=== PATIENT | female | born 1950 | race Caucasian/White ===

== ENCOUNTER 2021-12-11 12:11 | Inpatient (IN) | payer OTHER ==
[~2021-12-11] VITALS: Ht 165.1 cm; Wt 62.7 kg
[~2021-12-11 12:11] MED LIST: ASPIRIN81 M2 PO; CATAPRES-TTS 10.1 MG PO; CLONIDINE0.1 PO; EFFIENT10 MG PO; FLEXERIL PO; HYDROCODON-ACE1 EAC7 PO; K-DUR 20 MEQ T20 MEQ PO; LASIX 40 MG TAB40 M1 PO; SYNTHROID100 MCG PO; TOPROL XL50 MG PO; TRANSDERM-SCOP1 EACH TD; VYTORIN 10-401 EACH PO; XANAX 0.5 MG0.5 M1 PO
[2021-12-11 13:42] VITALS: BP 136/74
[2021-12-11] MEDS ORDERED: MECLIZINE HCL25 M1 PO (14:37)
[2021-12-11] MEDS ORDERED: ROSUVASTATIN CA20 MG PO (14:38)
[2021-12-11] MEDS ORDERED: NITROSTAT0.4 M1 SUBLING (14:38)
[2021-12-11] MEDS ORDERED: ULTRAM50 MG PO (14:39)
[2021-12-11] MEDS ORDERED: DESYREL150 MG PO (14:40)
[2021-12-11 16:18] LABS: BE(vivo) 1.7 mmol/L (-2 to +3); HCO3 27.4 mmol/L (22.0-26.0); PCO2 46.9 mmHg (35.0-45.0); pH 7.384 (7.360-7.450); sO2 92.3 % (92.0-98.0)
--- NOTE | 2021-12-11 18:20 | NUR ---
PATIENT ADMIT TO UNIT AT 1420 ON NRB. PATIENT SWITCHED TO OPTIFLOW 50L/85% BY THEN. A/O X2. NOTED PATIENT KEEP DESAT. DR TAYLOR ORDERED BIPAP. PATIENT IS ON 80% BIPAP NOW WITH SAT 93%..POOR APPATIE. FAMILY UPDATED. WILL LEEP MONITOR.
[2021-12-11 19:48] VITALS: BP 115/63
[2021-12-12 00:31] VITALS: BP 112/68
[2021-12-12 02:35] VITALS: BP 126/72
--- NOTE | 2021-12-12 03:40 | NUR ---
PT MAKING POOR PROGRESS TOWARD GOAL. ON BIPAP 10/11 R=10 [id number]%. NOTED O2 SATS 92-95% UPON INITIAL ASSESSMENT. THIS AM O2 SATS SLIGHTLY HIGHER WITH 95-98%. LUNGS CTA UPPER LOBES AND CRACKLES IN LOWER LOBES. NO COUGH OBSERVED. PT TOLERATING BIPAP WELL. NO TACHYPNEA OBSERVED. NO COMPLAINTS OF PAIN.
[2021-12-12 05:34] LABS: HEMATOCRIT 38.5 % (37.0-47.0); HEMOGLOBIN 12.9 gm/dL (12.0-15.0); MCH 32.2 pg (26.0-34.0); MCHC 33.5 g/dL (28.0-37.0); MCV 96.2 fL (80.0-100.0); RBC 4.01 mil/uL (4.20-5.00); RDW 16.9 % (10.5-14.5)
[2021-12-12 06:01] LABS: CALCIUM 8.4 mg/dL (8.5-10.1); MAGNESIUM 1.7 mg/dL (1.8-2.4)
[2021-12-12 06:02] LABS: CREATININE 0.6 mg/dL (0.6-1.0); POTASSIUM 4.1 mmol/L (3.5-5.1)
[2021-12-12 07:34] VITALS: BP 123/72
[2021-12-12 11:23] VITALS: BP 125/71
[2021-12-12 15:34] VITALS: BP 129/71
--- NOTE | 2021-12-12 16:08 | NUR ---
RT TL IJ RELEASED FOR USE
[2021-12-12 18:56] LABS: D-DIMER 0.52 ug/mLFEU (0.19-0.50)
--- NOTE | 2021-12-12 19:55 | NUR ---
ASSUMED PATIENT CARE AT 0700. A/O X2. CONFUSED. PATIENT IS ON 100% BIPAP SAT 94%. FACETIME WITH PATIENT AND TWO DAUGHTERS. PATIENT HAS FOUR RINGS THAT CUT OFF SENT TO SECURITY. NOTED RIGHT IJ CENTRAL LINE BLEEDING. DRESSING CHANGED. WILL KEEP MONITOR.
[2021-12-12 20:27] VITALS: BP 123/75
[2021-12-13] VITALS (23 sets, daily range): BP systolic 88–139; BP diastolic 53–104
[2021-12-13 04:06] LABS: HIV ANTIBODY Non Reactive (Non Reactive)
[2021-12-13 04:54] LABS: ABSOLUTE NEUTROPHILS 8.5 thou/uL (1.4-8.2); BASOPHILS 0.2 % (0.0-2.0); HEMOGLOBIN 11.8 gm/dL (12.0-15.0); LYMPHOCYTES 7.9 % (24.0-44.0); MCHC 33.8 g/dL (28.0-37.0); MCV 94.7 fL (80.0-100.0); MONOCYTES 10.4 % (1.0-8.0); PLATELET COUNT 249 thou/uL (150-400); POLYS 81.5 % (36.0-66.0); RBC 3.69 mil/uL (4.20-5.00); RDW 16.6 % (10.5-14.5); WBC 10.5 thou/uL (4.0-11.0)
[2021-12-13 05:06] LABS: ALBUMIN 2.8 g/dL (3.4-5.0); ANION GAP 11 mmol/L (7-16); BUN 23 mg/dL (7-18); CALCIUM 8.5 mg/dL (8.5-10.1); CHLORIDE 99 mmol/L (98-107); CO2 28 mmol/L (21-32); DIRECT BILIRUBIN < 0.1 mg/dL (<0.1-0.2); GLUCOSE 189 mg/dL (74-106); POTASSIUM 3.8 mmol/L (3.5-5.1); SGOT 48 U/L (15-37); SGPT 27 U/L (30-65); SODIUM 138 mmol/L (136-145); TOTAL BILIRUBIN 0.2 mg/dL (0.2-1.0); TOTAL PROTEIN 6.9 g/dL (6.4-8.2)
[2021-12-13 05:08] LABS: CREATININE 1.7 mg/dL (0.6-1.0)
[2021-12-13 05:10] LABS: INR 0.97; PROTIME 10.6 Seconds (10.5-12.1)
--- NOTE | 2021-12-13 07:57 | NUR ---
PT NEW PICC STILL BLEEDING. CENTRAL LINE DRESSING AND NEW STAT LOCK CHANGED X3 OVERNIGHT. OBTAINED NEW CHEST XRAY PICC LOOKS LIKE IT MIGHT HAVE ADVANCED OUT. LABS WERE DRAWN AND IT WORKED WELL AND IV RUNS WELL. SPOKE TO DAY NURSE AND SHE WILL FOLLOW UP.
[2021-12-13 10:04] LABS: BE(vivo) 0.9 mmol/L (-2 to +3); HCO3 24.7 mmol/L (22.0-26.0); PO2 168.7 mmHg (80.0-100.0); pH 7.443 (7.360-7.450); sO2 99.2 % (92.0-98.0)
--- NOTE | 2021-12-13 14:08 | NUR ---
1340: PT ARRIVED TO 241 VIA BED ACCOMPANIED BY 3W RN, AUTHORIZER, RT, AND DR. RUIZ. REPORT RECEIVED FROM SOCORRO FONTENOT. PT LETHARGIC, BUT AROUSES TO SPEECH, ORIENTED X1 ONLY, FOLLOWS COMMANDS. ASSESSMENT COMPLETE DOCUMENTED. VSS. PT CURRENTLY ON BIPAP FULL FACE MASK AT 100% FIO2, SPO2 97-99%. PT NOT CURRENTLY PULLING AT MASK, OCCASIONALLY TOUCHHES IT, BUT EASILY REDIRECTABLE AT THIS TIME. POC DISCUSSED WITH DR. RUIZ AT BEDSIDE, NO NEED FOR REPEAT ABG AT THIS TIME PER DR. RUIZ. PULM AND ID FOLLOWING. R IJ NOTED TO HAVE LARGE AMOUNT OF BLEEDING DESPITE DRESSING BEING CHANGED PREVIOUSLY THIS SHIFT BY IV THERAPY WITH SURGISEAL. IV THERAPY HAS BEEN NOTIFIED OF REBLEEDING AND WILL BE HERE TO ASSESS SOON. PT APPEARS IN NO ACUTE DISTRESS. VSS. WILL CONTINUE TO MONITOR CLOSELY.
--- NOTE | 2021-12-13 14:50 | NUR ---
INITIAL ASSESSMENT: Received consult. SW reviewed chart and spoke with nursing and attending physician. Pt was transferred to [facility] from [facility]. Pt with hx HTN. Pt placed in Enhanced Isolation due to COVID. Pt is afebrile and requiring bipap support. Pt is on IV abx and IV steroids. Pt has started Remdesivir. Per chart, pt has been vaccinated. LINDERMAN MACHINE OPERATOR called earlier today. Pt has been transferred to ICU. Pt's family notified by nursing of pt's transfer. Per chart, pt is normally alert/orientated. Pt lives at home with family. Pt will need therapy evals ordered when able to participate. SW is following to assist as needed with discharge planning.
--- NOTE | 2021-12-13 16:17 | NUR ---
1540: RN PAGED DR. RUIZ AT THIS TIME REGARDING CONTINUED RESTLESSNESS DESPITE SCHEDULED ATIVAN ADMINISTRATION. RN INQUIRED ABOUT PRECEDEX GTT PT CONTINUOUSLY TRYING TO GET UP/GET OUT OF BED/PULLING AT BIPAP/PULLING AT WRIST BANDS. PT IS REDIRECTABLE, BUT IMMEDIATELY FORGETS. PT NEEDING CONSTANT OBSERVATION AT THIS TIME. PT'S SPO2 WITH BIPAP ON REMAINS 95-100%, RR WNL, BUT WHEN PT TRYING TO GET UP OR MOVING FREQUENTLY, SPO2 DECREASES AND RR IN THE 30S. PER DR. RUIZ, PLEASE CONTACT DR. MCGUIRE TO EVAL AND DECIDE ON PRECEDEX.
--- NOTE | 2021-12-13 16:20 | NUR ---
1615: PT CONTINUES TO TRY AND GET OUT OF BED, IS VERY RESTLESS, REMAINS CONFUSED. PULLING AT BIPAP MASK MORE FREQUENTLY AND USING HER FACE TO MOVE MASK OFF. THIS RN OR OTHER RN'S IN THIS POD HAVE BEEN IN THE ROOM ALMOST CONSTANTLY SINCE TRANSFER. RN SPOKE WITH DR. RUIZ, NOTIFIED HIM. MD TO CONSIDER STARTING PRECEDEX AT THIS TIME.
--- NOTE | 2021-12-13 16:20 | NUR ---
1600: RN CALLED DR. MCGUIRE AT THIS TIME, NO ANSWER, WILL ATTEMPT AGAIN.
--- NOTE | 2021-12-13 16:52 | NUR ---
1630: IMMEDIATELY AFTER THIS RN ENDED CONVERSATION WITH DR. RUIZ, DR. MCGUIRE ROUNDING. DISCUSSED INITITATION OF PRECEDX GTT, OR SOMETHING TO RELAX PATIENT. 1MG HALDOL AROUND 1145, AND 0.5MG ATIVAN AT APPROXIMATELY 1400 WERE NOT EFFECTIVE IN CALMING PT. NOTIFIED DR. MCGUIRE THAT WHEN PT IS CALM, RR IN TEENS AND SPO2 99-100% ON BIPAP. VERBAL ORDER FROM DR. MCGUIRE FOR 5MG IV HALDOL X1 AND IF NO IMPROVEMENT IN RESTLESSNESS, CAN RECONSIDER PRECEDEX. ALSO DISCUSSED BLEEDING IJ WITH DR. MCGUIRE AND NOTIFIED HIM DRESSING HAS BEEN CHANGED SEVERAL TIMES INCLUDING WITH SURGISEAL, BUT CONINUES TO BLEED WITH PT'S RESTLESSNESS. NO OTHER NEW ORDERS, CONTINUE TO MONTIOR.
--- NOTE | 2021-12-13 16:57 | NUR ---
3435: RN DISCUSSED HAVING A 1:1 WITH PT NURSING STAFF HAS HAD TO STAY IN ROOM CONTINUOUSLY SINCE TRANSFER. RN TOLD DR. MCGUIRE UNSURE IF STAFF IS AVAILABLE FOR SUCH. PER DR. MCGUIRE, "ASK FOR ONE ANYWAY." RN NOTIFIED TELETYPE INSTALLERMARJORIE QUINTANILLA WHO REPORTS SHE WILL CALL THE [facility].
--- NOTE | 2021-12-13 17:38 | NUR ---
1730: RN NOTIFIED BY GINGER AMADOR RN, THERE IS NOT STAFF AVAILABLE AT FOR A 1:1 SITTER AT THIS TIME PER WAREHOUSE SHIPPER. SHE THEN SPOKE WITH DR. RUIZ REGARDING PT'S CONTINUED RESTLESSNESS AND NOW PULLING OFF BIPAP ALMOST CONTINUOUSLY. THIS RN NOTED PT TO BE CYANOTIC AND DESAT TO THE 60S WITHOUT BIPAP ON. BIPAP BEING REPLACED BY STAFF FREQUENTLY. RN IN ROOM AT THIS TIME TO CALM PT. NEW ORDERS FOR PRECEDEX GTT.
--- NOTE | 2021-12-13 17:41 | NUR ---
THIS RN REQUESTED ROSALINO QUINTANILLA CALL IV THERAPY REGARDING PERFUSE BLEEDING AGAIN FROM R IJ SITE. PER SOCORRO JERRY, THEY WILL BE UP SOON TO ASSESS
--- NOTE | 2021-12-13 18:35 | NUR ---
VAT CALLED X3 TODAY FOR CVAD SITE BLEEDING. SUGICEL APPLIED X2 WITH DRESSING CHANGES, THEN 4X4 PRESSURE DRESSINGS APPLIED. SLOW OOZING FROM INSERTION SITE. LARGE CLOT INTCT AT SITE WITH LAST DRESSING CHANGE. PT VERY RESTLESS, CONTINUALLY MOVING IN BED.
--- NOTE | 2021-12-13 18:40 | NUR ---
Patient was given haldol and activan for agitation and constantly trying to get out of the bed. None of the medications helped the patient. Dr Mendez ordered for a sitter for the patient. The RN taking care of the patient let the lens marker Abby know about the requirement of sitter for Room 241. This set up and charger Abby called Dr. Mendez. Informed him that patient is agitated, constantly trying to get out of the bed, taking bipap off and haldol and activan did not work as well. I informed Dr. Mendez about the staffing issue and lack of sitter or nurses for the patient. He said I would have to work it with the dope dry house operator to provide a sitter for this patient and he did not want to given any further medications to this patient. All the above information was relayed to and molder feeder Piotr. gave order for precedex gtt and one unit of transfusion of FFP as patient was bleeding from the right jugular central line site.
--- NOTE | 2021-12-13 18:44 | NUR ---
1845: PT CONTINUES TO REQUIRE CONSTANT OBSERVATION TO MAINTAIN BIPAP ON FACE, HERNANDEZ IN PLACE, AND TO PREVENT PULLING OF LINES. RN TITRATING PRECEDEX ORDERED. NOW AT 0.6 MCG.KG.HR WITH MINIMAL IMPROVEMENT IN PT'S RESTLESSNESS. PT CONTINUES TO BE CONFUSED. NOT PROGRESSING TOWARDS GOALS EVIDENCED BY INCREASED CONFUSION, NEED FOR BIPAP AND INITITATION OF PRECEDEX GTT FOR RESTLESSNESS.
[2021-12-14] VITALS (29 sets, daily range): BP systolic 100–158; BP diastolic 51–91
[2021-12-14 05:59] LABS: HEMATOCRIT 33.4 % (37.0-47.0); HEMOGLOBIN 11.1 gm/dL (12.0-15.0); MCH 31.4 pg (26.0-34.0); MCHC 33.1 g/dL (28.0-37.0); MCV 94.8 fL (80.0-100.0); RBC 3.53 mil/uL (4.20-5.00); RDW 16.6 % (10.5-14.5)
[2021-12-14 06:28] LABS: ALBUMIN 3.1 g/dL (3.4-5.0); CALCIUM 8.8 mg/dL (8.5-10.1); CREATININE 1.7 mg/dL (0.6-1.0); DIRECT BILIRUBIN 0.1 mg/dL (<0.1-0.2); MAGNESIUM 1.2 mg/dL (1.8-2.4); PHOSPHORUS 2.5 mg/dL (2.6-4.7); POTASSIUM 4.2 mmol/L (3.5-5.1); TOTAL BILIRUBIN 0.3 mg/dL (0.2-1.0); TOTAL PROTEIN 6.9 g/dL (6.4-8.2)
--- NOTE | 2021-12-14 07:38 | NUR ---
ORDERS FOR EVAL AND TREAT HOWEVER Pt TRANSFERRED TO ICU. WILL PLACE ON HOLD AND AWAIT ORDERS WHEN APPROPRIATE
--- NOTE | 2021-12-14 15:09 | NUR ---
ALVIN reviewed chart and spoke with attending physician. Pt is in ICU in Enhanced Isolation due to COVID. Pt is afebrile and requiring bipap support. Pt is on IV meds and Remdesivir. ALVIN spoke with pt's dtr, Alba, via phone. Introduced role of SW. Pt is normally alert/orientated x 4. Pt lives at home with her spouse in [place], [place]. Prior to admission, pt was independent with ADLs. No use of DME. There are 3 steps to get into the house from their garage. No hx of services or post-acute placement. Pt's PCP is Dr. Francis Carrillo in [place], [place]. Updated provided to pt's dtr, who had just spoken with pt's nurse. Family will Face Time with pt at a later time. Therapy evals to be completed when pt is able to participate. SW discussed potential discharge needs with Alba. Pt's dtr is aware and states that they would prefer pt to be in the [facility] for post-acute placement, if possible. ALVIN discussed [facility] bed unit and other SNFs in [place]. Pt's dtrBrandy is a nurse. Contact info for ALVIN provided. ALVIN is following to assist as needed with discharge planning.
[2021-12-15] VITALS (37 sets, daily range): BP systolic 88–151; BP diastolic 54–86
[2021-12-15 06:21] LABS: CALCIUM 7.6 mg/dL (8.5-10.1); CREATININE 1.7 mg/dL (0.6-1.0); DIRECT BILIRUBIN 0.1 mg/dL (<0.1-0.2); PHOSPHORUS 2.7 mg/dL (2.5-4.9); POTASSIUM 3.5 mmol/L (3.5-5.1); TOTAL BILIRUBIN 0.4 mg/dL (0.2-1.0); TOTAL PROTEIN 6.3 g/dL (6.4-8.2)
--- NOTE | 2021-12-15 06:38 | NUR ---
STARTING AT 0000 PATIENT BECAME VERY RESTLESS. PATIENT WAS GIVEN ATIVAN AND WAS MAXED ON PRECEDEX. AT THIS TIME MELECIO ALMENDAREZ, NOTIFIED OF PATIENT RESTLESSNESS AND ORDERS FOR RESTRAINTS WERE OBTAINED. PATIENT WAS RESTRAINED BUT CONTINUED TO THRASH AND SCREAM. PATIENT CALMED DOWN FOR ABOUT AN HOUR AND AT 0330 PATIENT BECAME WORSE--CONSTANTLY YELLING AND THRASHING IN BED. DR. MCGUIRE NOTIFIED OF PATIENT BEHAVIOR. ORDERS RECEIVED TO GIVE 5 OF HALDOL AND REMOVE RESTRAINTS. RESTRAINTS REMOVED AND HALDOL ADMINISTERED--HALDOL WORKED WELL FOR ABOUT [address] MCGUIRE NOTIFIED THAT PATIENT WAS STILL RESTLESS, TRYING TO ROLL OUT OF BED, AND PULLING AT LINES. AN ORDER WAS RECEIVED FOR ANOTHER 5 MG HALDOL. THIS DOSE DID NOT HAVE ANY EFFECT. DR. MCGUIRE NOTIFIED, ORDERS RECEIVED TO INTUBATE/SEDATE PATIENT. RT AND COIL BUILDER NOTIFIED OF THESE ORDERS. ER PHYSICIAN ARRIVED TO INTUBATE, INTUBATION AND MEDICATION MANAGED PER ED PHYSICIAN ORDERS. PATIENT SUCCESSFULLY INTUBATED AT 0503 WITH 7.5 ETT 22 AT LIP. BILATERAL BREATH SOUNDS HEARD. OG TUBE PLACED. CXR AND KUB ORDERED TO VERIFY PLACEMENT. PATIENT SEDATED ON PROPOFOL AND PRECEDEX. DAUGHTERS МАРИНА AND JUANA WERE BOTH NOTIFIED OF PATIENT'S STATUS/INTUBATION. PRECEDEX TURNED OFF AT 0640 RELATED TO BRADYCARDIA. PATIENT OTHERWISE STABLE AT THIS TIME.
[2021-12-15 07:20] LABS: BE(vivo) 0.9 mmol/L (-2 to +3); HCO3 22.7 mmol/L (22.0-26.0); PCO2 27.5 mmHg (35.0-45.0); PO2 108.3 mmHg (80.0-100.0); pH 7.534 (7.360-7.450); sO2 98.5 % (92.0-98.0)
[2021-12-16] VITALS (79 sets, daily range): BP systolic 68–139; BP diastolic 38–86
[2021-12-16 05:07] LABS: ABSOLUTE NEUTROPHILS 8.8 thou/uL (1.4-8.2); BASOPHILS 0.4 % (0.0-2.0); EOSINOPHILS 0.1 % (0.0-3.0); HEMATOCRIT 30.1 % (37.0-47.0); HEMOGLOBIN 10.6 gm/dL (12.0-15.0); LYMPHOCYTES 8.1 % (24.0-44.0); MCH 32.9 pg (26.0-34.0); MCHC 35.1 g/dL (28.0-37.0); MCV 93.8 fL (80.0-100.0); MONOCYTES 4.8 % (1.0-8.0); PLATELET COUNT 272 thou/uL (150-400); POLYS 86.6 % (36.0-66.0); RBC 3.21 mil/uL (4.20-5.00); RDW 16.3 % (10.5-14.5); WBC 10.8 thou/uL (4.0-11.0)
[2021-12-16 08:12] LABS: CALCIUM 7.6 mg/dL (8.5-10.1); CREATININE 1.5 mg/dL (0.6-1.0); POTASSIUM 3.4 mmol/L (3.5-5.1)
--- NOTE | 2021-12-16 08:34 | NUR ---
0400- Notified ANTIONETTE Tom that pts temp dropped to 94.5, order completed to place warming blanet. Also notified her of pts HR with lowest 38, normally in 40s despite decreasing sedation throughout the night, no new orders.
--- NOTE | 2021-12-16 10:55 | NUR ---
pt desating-78%. self extubated despite keara wrist restraints firmly secured. pt had wiggled herself down and side way in bed. discovered with her hand gripped on the completely displaced ett tube and og tube. started bagging with [id number]%. call placed to Dr. Mendez. Bipap ordered. when Henri, RT placed bipap, initially rr-low 50's. pt continuing to move about in the bed even with keara wrist restraints secure. Josefina Hummel RN changed VAJ central line dressing.
[2021-12-16 13:59] LABS: BE(vivo) -0.9 mmol/L (-2 to +3); HCO3 21.1 mmol/L (22.0-26.0); PCO2 27.3 mmHg (35.0-45.0); PO2 77.9 mmHg (80.0-100.0); pH 7.507 (7.360-7.450); sO2 96.7 % (92.0-98.0)
--- NOTE | 2021-12-16 14:42 | NUR ---
Pt remains in ICU and was intubated yesterday. Self extubated today. No on bipap. Nursing has updated her dtr. Dc timeframe and needs are uncertain. Will follow along.
--- NOTE | 2021-12-16 16:13 | NUR ---
IN ROOM W PT LAST 50 MIN'S OR SO. HAD PULLED OFF BIPAP,SATS .49%. PT SIDEWAYS IN BED,LEGS THROWN OVER,CONFUSED CONVERSATION,RESISTENT TO ALL CARES. INCONT LG AMT DIARRHEA-BATH GIVEN, LINEN CHANGE,PT FIGHTING AGAINST IT ENTIRE TIME. WILL NOT LEAVE BIPAP ON,PULLING OFF MASK,BREAKING CONNECTION.ASKED R.T. TO PUT PT ON OPTIFLOW, PLACED IN RESTRAINTS FOR SAFETY OF LINE,O2 DEVICE.DR MCGUIRE UPDATED.--VW
--- NOTE | 2021-12-16 16:46 | NUR ---
Pt. self extubated self this morning despite being in restraints. Pt was placed on bi-pap & continued to take mask off. Code was called at 1618 due to pt's sats dropping. Pt. was reintubated, did not loose pulse
--- NOTE | 2021-12-16 17:30 | NUR ---
>>>>>>>>>>>>>>>>>>>>1620 code blue called related to acute resp distress. Laurita Hummel, RN bagging pt with 100% fio2. Zahraa, resp therapy present. call placed to Dr. Mendez. updated on pt deterioring and requiring intubation. orders received for intubation, sedation and abg post intubation. >>>>>>>>>>>>>>>>>>>>1625 Dr. Uribe ER physician present in pt room. >>>>>>>>>>>>>>>>>>>>1634 Etomidate 25mg iv given, then 1635 Succinycholine 100mg iv given. with first intubation attempt, sao2 down to 74%. bagged with 100% and with sa02 in upper 90's, second attempt=- intubated successfully with ett 7.5, 22cm at gums. lungs auscultated in all lung yanez. >>>>>>>>>>>>>>>>>>>>1700 oral gastric tube tube placed with positive gastric auscultation. portable chest xray to confirm ett and og tube placement. see mars for versed and fentanyl gtt for sedation. >>>>>>>>>>>>>>>>>>>>1715 pt had loose stool, then another stool. fecal management system placed. gastric tube placed. at lips
[2021-12-16 18:29] LABS: BE(vivo) -1.8 mmol/L (-2 to +3); HCO3 20.8 mmol/L (22.0-26.0); PCO2 29.1 mmHg (35.0-45.0); PO2 132.8 mmHg (80.0-100.0); pH 7.473 (7.360-7.450); sO2 98.9 % (92.0-98.0)
--- NOTE | 2021-12-16 20:37 | NUR ---
daughter- Brandy inquired regarding update in late afternoon. just returned call updating her on pt status including self extubation this am. tolerated bipap after extubation until pt had very large loose stool and required being cleaned up. sao2 as low as 49%, fio2 up to 100% and pt becoming cyanotic. reintubated, well tolerated. precedex, versed and fentanyl infusing for sedation. pt resting quietly. updated on labs.
[2021-12-17] VITALS (91 sets, daily range): BP systolic 83–139; BP diastolic 46–68
--- NOTE | 2021-12-17 02:53 | NUR ---
1999- Negro DERRICK BUILDER notified of pt being hypothermic with temp 94.2 despite having warming blanket. She ordered to place warm blankets over warming blanket and turn up room heat. 2400- pts temp normothermic and she was updated 2100- ordered to hold ativan, risperidone, trazadone, and xanax overnight. Also ordered to leave tube feeds off overnight. OG placement comfirmed by Dr. Steele. 2314- pts BP dropped, lowest 60s/30s and Dr. Mendez notified and ordered levo gtt. Negro DERRICK BUILDER also notified and came to bedside and ordered 250ml NS bolus. Pts BP quickly responded to levo.
[2021-12-17 05:40] LABS: CALCIUM 7.1 mg/dL (8.5-10.1); CREATININE 1.9 mg/dL (0.6-1.0); POTASSIUM 3.5 mmol/L (3.5-5.1)
[2021-12-17 10:02] LABS: DIRECT BILIRUBIN 0.2 mg/dL (<0.1-0.2); TOTAL BILIRUBIN 0.4 mg/dL (0.2-1.0); TOTAL PROTEIN 6.1 g/dL (6.4-8.2)
--- NOTE | 2021-12-17 10:02 | NUR ---
0900: DISCUSSED POC WITH DR. MCGUIRE AND INTERDISCIPLINARY TEAM. OKAY TO RESTART TF TODAY, CHEST PAINTING LEADER TO INCREASE GOAL RATE TO 55MLs/HR. RN NOT WEANING SEDATION PER ORDERS DUE TO SELF EXTUBATION YESTERDAY. FMS IN PLACE, STOOL LOOSE AT THIS TIME, NO NEED FOR LAXATIVES. WILL RESUME PROPHYLACTIC LOVENOX NOW THAT R IJ SITE NO LONGER BLEEDING. NOTIFIED TEAM OF HYPOTHERMIA OVERNIGHT, MAI VERA PRN. WEANING LEVOPHED ABLE, PT RECEIVED BOLUS OVERNIGHT FOR HYPOTENSION, BUT SINCE ON LASIX, RN TO TITRATE PRESSORS FIRST.
--- NOTE | 2021-12-17 12:11 | NUR ---
1100: RN DISCUSSED POC WITH DR. RUIZ AT BEDSIDE. NOTIFIED HIM PT APPEARS COMFORTABLE ON CURRENT SEDATION; HOWEVER NOTED THAT IF PRECEDEX OR VERSED ALERT RN THAT A NEW BAG IS NEEDED, PT DOES AROUSE AND BECOME FIDGETY, MOVES ALL EXTREMITIES, FURROWS BROW. DISCUSSED ORDER TO NOT TITRATE DOWN. NOTIFIED DR. RUIZ THAT ABLE TO TITRATE DOWN ON FIO2, WILL CONTINUE TO TITRATE SPO2 ALLOWS.
--- NOTE | 2021-12-17 12:13 | NUR ---
1145: RN SPOKE WITH PT'S DAUGHTER, JUANA CHOI. UPDATED HER ON CURRENT POC. NOTIFIED HER LEVOPHED IS AT VERY LOW DOSE AND LIKELY DUE TO HIGH AMOUNTS OF SEDATION REQUIRED TO KEEP PT COMFORTABLE AND PREVENT EXTUBATION. NOTIFIED HER THAT WE ARE TITRATING FIO2 AND PT TOLERATING THUS FAR. PT'S DAUGHTER EXPRESSES CONCERN FOR HOW LOW PT'S SPO2 WAS AT HOME, REPORTS PT WAS SICK X3 DAYS AND WHEN SHE DID GO TO HOSPITAL, HER SPO2 WAS IN THE 30S, UNSURE IF THIS MIGHT BE RELATED TO ENCEPHALOPATHY. SHE ALSO REPORTS PT HAS HAD TROUBLE ON STEROIDS PREVIOUSLY IN HER LIFE. DENIES KNOWING OF ANY FURTHER PSYCHOLOGICAL DIAGNOSES ASIDE FROM KNOWN ANXIETY. DAUGHTER DISCUSSED GOALS OF CARE WITH THIS RN. DAUGHTER STATES SHE HAS SPOKEN WITH FAMILY AND ALL AGREE THAT, "IF IT IS TIME TO GO COMFORT CARE, WE UNDERSTAND." RN EXPLAINED TO PT'S DAUGHTER THAT PT IS DOING WELL WITH TITRATIONS AND APPEARS COMFORTABLE, STILL CRITICALLY ILL, BUT VSS AT THIS TIME. RN TO PAGE DR. RUIZ TO CALL FAMILY FOR UPDATE PER DAUGHTER'S REQUEST.
--- NOTE | 2021-12-17 13:27 | NUR ---
1325: RN PAGED DR. RUIZ AT THIS TIME REGARDING PT'S BRADYCARDIA. PREVIOUSLY THIS SHIFT, PT HAS BEEN SB c BBB IN THE 50S-LOW 60S. NOW MAINTAINING IN THE 40S CONSISTENTLY. LIKELY DUE TO SEDATION, MONITOR AT THIS TIME PER DR. RUIZ, NEW ORDERS FOR EKG, NOTIFY MD IF HR <40S. ALSO DISCUSSED WITH DR. RUIZ THE CONVERSATION THIS RN HAD WITH PT'S DAUGHTER, JUANA. REQUESTED DR. RUIZ CALL FAMILY PER THEIR REQUEST.
--- NOTE | 2021-12-17 15:21 | NUR ---
Discussed during los with the attending physician. Paulina required intubation again. Vent 80% FIO2, peep of 8. No anticipated discharge over the weekend. Will continue following as needed.
--- NOTE | 2021-12-17 15:34 | EKG ---
[address] [place] [address] ELECTROCARDIOGRAM REPORT Name: JANE URIBE Room #: 241-P ADM IN M.R.#: [id number] Admission: 12/11/21 Attend Phys: Kieran Rangel MD Discharge: Date of : 48 Report #: [id number] [facility] Test Date: 2021-12-17 Test Time: 13:36:58 Pat Name: JANE URIBE Department: Room: 241 Gender: F Town Planner: COLLETTE : 1950 Requested By: Kieran Rangel Order Number: [id number] : Donaldo Taylor Measurements Intervals Turner Rate: 44 P: 21 WA: 169 QRS: -1 QRSD: 147 T: 44 QT: 622 QTc: 533 Interpretive Statements Sinus bradycardia Left bundle branch block Compared to ECG 08/03/2012 07:51:56 Sinus rhythm no longer present Electronically Signed On 12-17-2021 15:34:48 INVENTORY COORDINATOR by Donaldo Taylor [email or web address] <ELECTRONICALLY SIGNED> By: Donaldo Taylor MD, [facility] 12/17/21 1534 1336 35 Donaldo Taylor MD, FACC /EPI
--- NOTE | 2021-12-17 16:25 | NUR ---
1500: RN SPOKE WITH PT'S DAUGHTER, МАРИНА, VIA TELEPHONE. UPDATED HER ON POC, NO ACUTE CHANGES MADE SINCE SPEAKING WITH HER SISTER. NOTIFIED HER THAT DR. RUIZ HAS BEEN ASKED TO CALL AND UPDATE FAMILY. DAUGHTER VERBALIZES UNDERSTANDING.
--- NOTE | 2021-12-17 18:19 | NUR ---
1819: PT'S SSI ADJUSTED PER PROTOCOL TO MODERATE DOSE SCALE PREVIOUS TWO CONSECUTIVE BG 222 AND 308.
--- NOTE | 2021-12-17 18:20 | NUR ---
1900: PT IS SLOWLY PROGRESSING TOWARDS GOALS THIS SHIFT EVIDENCED BY DECREASED FIO2 NEEDS FROM 80-50%. PT REMAINS CRITICALLY ILL, REQUIRING HIGH DOSES OF SEDATION TO ENSURE PT SAFETY FROM SELF EXTUBATION AND SUBSEQUENTLY REQUIRING SMALL DOSE OF LEVO TO MAINTAIN MAP >65.
[2021-12-18] VITALS (98 sets, daily range): BP systolic 81–183; BP diastolic 43–71
[2021-12-18 05:38] LABS: HEMATOCRIT 27.4 % (37.0-47.0); HEMOGLOBIN 9.3 gm/dL (12.0-15.0); MCV 94.1 fL (80.0-100.0); RBC 2.91 mil/uL (4.20-5.00); RDW 16.7 % (10.5-14.5); WBC 17.5 thou/uL (4.0-11.0)
[2021-12-18 05:59] LABS: ALBUMIN 2.6 g/dL (3.4-5.0); CALCIUM 6.6 mg/dL (8.5-10.1); CREATININE 1.4 mg/dL (0.6-1.0); MAGNESIUM 1.5 mg/dL (1.8-2.4); POTASSIUM 3.2 mmol/L (3.5-5.1); TOTAL BILIRUBIN 0.3 mg/dL (0.2-1.0); TOTAL PROTEIN 5.7 g/dL (6.4-8.2)
--- NOTE | 2021-12-18 08:05 | NUR ---
Early in shift, notified IT PROGRAMMER Tom of hypothermia, bradicardia, and increased residuals.
--- NOTE | 2021-12-18 16:29 | NUR ---
PT LEVOPHED RESTARTED AT 1630 B/P 81/49. LEVO RUNNING AT 0.1MCG/KG/MIN.
--- NOTE | 2021-12-18 16:34 | NUR ---
PT BRADYING DOWN INTO 20S AT THIS TIME LEVO INCREASED TO 1MCG/KG/MIN, DR. MCGUIRE NOTIFIED. FUDGER NOTIFIED. SEDATION TURNED OFF AT THIS TIME.
--- NOTE | 2021-12-18 16:44 | NUR ---
DOPAMINE STARTED AT 5MCG/KG/MIN AT THIS TIME. LABS DRAWN.
--- NOTE | 2021-12-18 17:01 | NUR ---
12 LEAD ECG DONE SHOWING A-FIB WITH LEFT BUNDLE BRANCH BLOCK. DOPAMINE INFUSING AT 5 MCG/KG/MIN, LEVO TURNED DOWN TO 0.3MCG/KG/MIN. PT B/P CURRENTLY 133/56 MAP 103. HR 70 IN A-FIB. DR. FARRIS NOTIFIED OF EVENTS.
[2021-12-18 17:03] LABS: HEMOGLOBIN 8.9 gm/dL (12.0-15.0); MCV 97.2 fL (80.0-100.0); RDW 17.3 % (10.5-14.5)
[2021-12-18 17:04] LABS: HEMATOCRIT 27.7 % (37.0-47.0); MCHC 31.9 g/dL (28.0-37.0); PLATELET COUNT 206 thou/uL (150-400); RBC 2.85 mil/uL (4.20-5.00)
[2021-12-18 18:02] LABS: ABSOLUTE NEUTROPHILS 19.1 thou/uL (1.4-8.2)
--- NOTE | 2021-12-18 18:22 | NUR ---
spoke with dr. richardson with cardiology at 1615, informed him of the previous events from earlier today. He stated that the fentanyl would need to be titrated if the patient became bradycardic again. He sees no need for pacemaker placement at this time. Informed Dr. Diaz of the conversation with cardiology. Per dr. Diaz it is ok to keep precedex gtt turned off at this point in time.
--- NOTE | 2021-12-18 19:39 | NUR ---
CALLED THE DAUGHTER (JUANA) AND SPOKE WITH HER OVER THE PHONE PROVIDING HER WITH UPDATES TO TODAY'S EVENTS, SHE HAD MENTIONED THAT SHE HAD SPOKEN TO A PROVIDER EARLIER IN THE EVENING WELL. PT IS PRESENTLY RESPONDING WELL TO LEVOPHED AND DOPAMINE GTT. PRECEDEX ALSO RESTARTED AT 1900 DUE TO PATIENT STARTING TO NOTICABLY MOVE AROUND IN BED. REMAINS IN RESTRAINTS. TODAYS EVENTS PASSED ONTO TO NIGHT RN.
[2021-12-18 23:36] LABS: MAGNESIUM 2.2 mg/dL (1.8-2.4); PHOSPHORUS 2.8 mg/dL (2.6-4.7)
[2021-12-18 23:40] LABS: ALBUMIN 2.9 g/dL (3.4-5.0); CALCIUM 6.8 mg/dL (8.5-10.1); CREATININE 1.3 mg/dL (0.6-1.0); POTASSIUM 3.3 mmol/L (3.5-5.1); TOTAL BILIRUBIN 0.5 mg/dL (0.2-1.0); TOTAL PROTEIN 6.5 g/dL (6.4-8.2)
[2021-12-19] VITALS (92 sets, daily range): BP systolic 60–158; BP diastolic 28–66
[2021-12-19 05:23] LABS: HEMATOCRIT 29.9 % (37.0-47.0); HEMOGLOBIN 10.3 gm/dL (12.0-15.0); MCH 32.8 pg (26.0-34.0); MCHC 34.4 g/dL (28.0-37.0); MCV 95.4 fL (80.0-100.0); RBC 3.13 mil/uL (4.20-5.00); WBC 26.5 thou/uL (4.0-11.0)
[2021-12-19 06:04] LABS: ALBUMIN 2.8 g/dL (3.4-5.0); CALCIUM 6.9 mg/dL (8.5-10.1); CREATININE 1.3 mg/dL (0.6-1.0); MAGNESIUM 1.9 mg/dL (1.8-2.4); TOTAL BILIRUBIN 0.3 mg/dL (0.2-1.0); TOTAL PROTEIN 6.2 g/dL (6.4-8.2)
--- NOTE | 2021-12-19 06:27 | NUR ---
PT WAS WAKE AND RESTLESS AT THE CHANGE OF SHIFT. HR ELEVATED 120'S. RN ELIE RESUMED PRECEDEX AT I MCG. PRECEDEX REMAIN INFUSING THROUGH OUT THE NIGHT. HR 76, PT LIGHTLY SEDATED, WITHDRAW FROM PAINFUL STIMULI. BEAR HUGGER ON STANDBY, MAX TEMP WAS 101 PER AXILLARY. 150 ML RESIDUALS. TF REMAIN AT 20ML/HR. NO STOOL PER FMS. DR. JONES IN TO SEE PT, ORDERS WRITTEN. SR PER MONITOR. RATES 76. SLOW PROGRESS TOWARDS DC GOALS. WILL CONTINUE TO MONITOR.
--- NOTE | 2021-12-19 09:46 | NUR ---
PAGED DR. FARRIS THIS MORNING AT 0900, HE RETURNED MY CALL AND I INFORMED HIM OF THE PATIENT POTASSIUM, MAG, CREATINE LEVELS. HE INSTRUCTED ME TO PROVIDE THE PATIENT WITH 40MEQ OF PO (PER TUBE) POTASSIUM AND 20MEQ IVPB POTASSIUM FOR A TOTAL OF 60MEQ OF K+. PER MD, NO NEED TO REPLACE MAG AT THIS TIME. WILL CONTINUE TO MONITOR AND REASSESS AND FOLLOW POC.
--- NOTE | 2021-12-19 11:07 | EKG ---
[place] [address] [facility] [place] [address] ELECTROCARDIOGRAM REPORT Name: JANE URIBE Room #: 241- ADM IN M.R.#: [id number] Admission: 12/11/21 Attend Phys: Kieran Rangel MD Discharge: Date of : 48 Report #: [id number] [facility] Test Date: 2021-12-18 Test Time: 16:58:02 Pat Name: JANE URIBE Department: Room: 241 Gender: F Morning Show Host: UNK : 1950 Requested By: Eric Mendez Order Number: [id number] MD: Nestor Ocampo Measurements Intervals Boley Rate: 67 P: OR: QRS: -2 QRSD: 132 T: -83 QT: 438 QTc: 463 Interpretive Statements Probable sinus bradycardia with atrial premature complexes Ventricular premature complex Left bundle branch block Compared to ECG 12/17/2021 13:36:58 Ventricular premature complex(es) now present Atrial premature complexes now present Electronically Signed On 12-19-2021 11:06:55 DISTRIBUTION SPEC by Nestor Ocampo [email or web address] <ELECTRONICALLY SIGNED> By: Nestor Ocampo MD, [facility] 12/19/21 1106 1658 1658 Nestor Ocampo MD, [facility] /EPI
--- NOTE | 2021-12-19 14:28 | NUR ---
TRANSPORTED PATIENT TO CT FOR CT SCAN OF THE CHEST AT 1345 WITH 2 RN'S AND RT. PT TRANSPORTED THEIR AND BACK WITHOUT INCIDENT.
--- NOTE | 2021-12-19 15:15 | NUR ---
CHEST CT RESULTS HAVE RETURNED SHOWING NUMEROUS PULMONARY EMBOLI PRESENT IN THE LUNGS, ACCORDING TO RADIOLOGIST. DR. FARRIS NOTIFIED AND AWARE, PT ALREADY ON LOVENOX 60MG BID.
[2021-12-19 23:03] LABS: URINE BILIRUBIN NEGATIVE (Negative); URINE BLOOD NEGATIVE (Negative); URINE CLARITY SL CLOUDY; URINE COLOR YELLOW; URINE GLUCOSE-RANDOM* NEGATIVE (Negative); URINE KETONES NEGATIVE (Negative); URINE LEUKOCYTES-REFLEX TRACE (Negative); URINE NITRITE-REFLEX NEGATIVE (Negative); URINE PROTEIN (DIPSTICK) TRACE (Negative); URINE UROBILINOGEN 0.2 E.U./dl (0.2-1.0)
[2021-12-20] VITALS (100 sets, daily range): BP systolic 34–153; BP diastolic 16–78
--- NOTE | 2021-12-20 01:47 | NUR ---
ASSUMED PT CARE AROUND 1900. PT SEDATED WITH PRECEDEX, VERSED, AND FENTANYL DRIPS. SPO2 90-91%; INCREASED FIO2 FROM 40% TO 45% ON VENT. INCREASED DOPAMINE DRIP FOR BP SUPPORT. MINIMAL SECRETIONS FROM ETT. TOLERATING TF WELL. AFEBRILE. REPORT GIVEN TO ONCOMING NURSE AR 2300.
--- NOTE | 2021-12-20 02:12 | NUR ---
DR. MCGUIRE CALLED AND MESSAGE LEFT DUE TO PROGRESSIVELY ELEVATED HEART RATE DURING SHIFT.
--- NOTE | 2021-12-20 03:00 | NUR ---
DR. MCGUIRE'S ANSWERING SERVICE CALLED WITH CALL BACK REQUESTED DUE TO WORSENING PRESSURES AND ELEVATED HEART RATE (130-150). PT APPEARS VERY PALE WITH COOL EXTREMITIES.
--- NOTE | 2021-12-20 04:00 | NUR ---
SPOKE WITH Merari LONG LIEUTENANT BALLISTICS ABOUT PATIENT'S ELEVATED HEART RATE AND LOW PRESSURES AND WAS TOLD TO TITRATE DOWN DOPAMINE AND TITRATE LEVO TO MAINTAIN MAP PER PROTOCOL.
--- NOTE | 2021-12-20 05:00 | NUR ---
DR MCGUIRE CALLED AND INFORMED OF PATIENT'S ELEVATED HEART RATE AND LOW PRESSURES. ORDERS TO START VASO GIVEN.
[2021-12-20 05:47] LABS: HEMATOCRIT 21.3 % (37.0-47.0); RBC 2.15 mil/uL (4.20-5.00)
[2021-12-20 05:50] LABS: MCH 31.6 pg (26.0-34.0); MCHC 31.9 g/dL (28.0-37.0); MCV 99.1 fL (80.0-100.0); RDW 17.8 % (10.5-14.5); WBC 18.9 thou/uL (4.0-11.0)
[2021-12-20 05:52] LABS: HEMOGLOBIN 6.8 gm/dL (12.0-15.0)
[2021-12-20 06:18] LABS: CALCIUM 6.5 mg/dL (8.5-10.1); CREATININE 1.6 mg/dL (0.6-1.0); MAGNESIUM 1.6 mg/dL (1.8-2.4); POTASSIUM 3.7 mmol/L (3.5-5.1); TOTAL BILIRUBIN 0.8 mg/dL (0.2-1.0); TOTAL PROTEIN 4.5 g/dL (6.4-8.2)
--- NOTE | 2021-12-20 06:30 | NUR ---
PTS BEDSIDE GLUCOSE 367 AND SECOND BG RESULT 405. 20 UNITS GIVEN.
[2021-12-20 06:59] LABS: HEMATOCRIT 21.3 % (37.0-47.0); HEMOGLOBIN 7.1 gm/dL (12.0-15.0); MCH 32.2 pg (26.0-34.0); MCHC 33.2 g/dL (28.0-37.0); RBC 2.19 mil/uL (4.20-5.00); RDW 17.4 % (10.5-14.5); WBC 20.3 thou/uL (4.0-11.0)
--- NOTE | 2021-12-20 07:30 | NUR ---
CMP AND CBC REORDERED. HAD TROUBLE OBTAINING BLOOD FROM PORT, VERY SLOW TRICKLE. DURING ATTEMPT WITH A DIFFERENT PORT, SEVERAL GTTs WERE NOT STOPPED SO CONTAMINATION WAS POSSIBLE. REDRAW WAS PERFORMED AT 0520 AND SENT TO LAB WITH STAT ORDERS.
[2021-12-20 08:15] LABS: ALBUMIN 2.1 g/dL (3.4-5.0); CALCIUM 6.8 mg/dL (8.5-10.1); CREATININE 1.5 mg/dL (0.6-1.0); POTASSIUM 3.9 mmol/L (3.5-5.1); TOTAL BILIRUBIN 0.4 mg/dL (0.2-1.0); TOTAL PROTEIN 4.6 g/dL (6.4-8.2)
--- NOTE | 2021-12-20 08:15 | NUR ---
ASSUMED CARE AT 2300. PATIENT'S HEART 110s AND NEARLY MAXXED ON DOPAMINE GTT FOR PRESSURE SUPPORT. PATIENT QUICKLY REQUIRED MAX PRESSURE SUPPORT AND HEART RATE BECAME PROGRESSIVELY ELEVATED. STARTED LEVO GTT WITH INTENTION TO TITRATE DOPAMINE GTT DOWN DUE TO TACHYCARDIA. PATIENT SEDATION UNCHANGED PER DR. MCGUIRE NOTE. PT VERY PALE, EXTREMITIES COOL, AND VITALS VERY SENSITIVE TO ANY GTT TITRATIONS OR MOVEMENT. INCREASED FI02 FROM 45% TO 50% DUE TO SATs 88% AND SATs INCREASED TO 96%. WILL CONTINUE TO MONITOR.
[2021-12-20 11:12] LABS: T-SPOT.TB Negative
--- NOTE | 2021-12-20 11:45 | NUR ---
Discussed during los with the attending physician, and during unit rounds with pulmonary MD and the attending physician. Changes in Vital signs, low b/p, and drop in hgb. Patient remains on vent. chest ct yesterday showed multi PE's. Patient daughter is a nurse and going to discuss comfort care with her dad and family. Cm notified by bedside nurse and attending physician that family has chosen comfort care. Ok for 2 family members to visit once the comfort order is put in. 2 daughters, and sister wishing to visit [place]. The attending physician was on the phone with family, letting them know they should come to the hospital soon. Will cont. following as needed.
--- NOTE | 2021-12-20 15:53 | NUR ---
Called [facility], informed them that we about to extubate pt and withdraw care. Family already came and saw the pt to say goodbye. [facility] referral number [id number]
--- NOTE | 2021-12-20 16:20 | NUR ---
RT extubated pt at 1615. I turned off all gtt except fent gtt now at 100mcg.
--- NOTE | 2021-12-20 17:09 | NUR ---
Pt went asystole at 1650. Myself and Reza QUINTANILLA listened for heart tones and found none. Dr Diaz in unit and notified. Fent turned off. No ggt going.
--- NOTE | 2021-12-20 20:04 | NUR ---
1400: Six family members came to waiting room around 1400 to say goodbye. Two daughters and put on N95, gown and gloves and went into pt's room while one daughter said goodbye from the ICU pt window. The other two did not want to come into the ICU to say goodbye. The three that went into room were educated that there is a risk of getting covid as they have not been fitted for the N95 mask, they acknowledged that and still wanted to go in the room. Plant Director was in the ICU comforting them before they went into the pt's room. The daughter Brandy Morejon and asked for the pt's belongings so I gave them the pt's upper and lower dentures, clothes, and purse. 1710 Called [facility] back at 1710 with time of . [facility] said pt is not a candidate for donation. I called Dr Urbina, Donte puente and Dr Cat cardiology to notify of time of . Dr Diaz was in the ICU at 1650 when pt and I showed him the asystomy print out from the tele. Reza Acevedo RN and I verfied no heart or breath sounds
== END 2021-12-20 16:50 | DRG 870 ==
LOC: 3W 12:11 → ICU 12-13 13:30
PROVIDERS: Internal Medicine; Nurse Practitioner Family; Pediatrics; Specialist; ADMIT Internal Medicine; ATTEND Internal Medicine
PROC: 5A09357 Assistance with Respiratory Ventilation, Less than 24 Consecutive Hours, Continuous Positive Airway Pressure (ICD-10-PCS; principal; 2021-12-11)
PROC: 5A0935A Assistance with Respiratory Ventilation, Less than 24 Consecutive Hours, High Flow/Velocity Cannula (ICD-10-PCS; principal; 2021-12-11)
PROC: 02H633Z Insertion of Infusion Device into Right Atrium, Percutaneous Approach (ICD-10-PCS; 2021-12-12)
PROC: 5A0935A Assistance with Respiratory Ventilation, Less than 24 Consecutive Hours, High Flow/Velocity Cannula (ICD-10-PCS; 2021-12-12)
PROC: XW033E5 Introduction of Remdesivir Anti-infective into Peripheral Vein, Percutaneous Approach, New Technology Group 5 (ICD-10-PCS; 2021-12-12)
PROC: 5A09357 Assistance with Respiratory Ventilation, Less than 24 Consecutive Hours, Continuous Positive Airway Pressure (ICD-10-PCS; 2021-12-12)
PROC: 5A09457 Assistance with Respiratory Ventilation, 24-96 Consecutive Hours, Continuous Positive Airway Pressure (ICD-10-PCS; 2021-12-13)
PROC: 5A0935A Assistance with Respiratory Ventilation, Less than 24 Consecutive Hours, High Flow/Velocity Cannula (ICD-10-PCS; 2021-12-13)
PROC: 0BH17EZ Insertion of Endotracheal Airway into Trachea, Via Natural or Artificial Opening (ICD-10-PCS; 2021-12-15)
PROC: 5A1955Z Respiratory Ventilation, Greater than 96 Consecutive Hours (ICD-10-PCS; 2021-12-15)
PROC: 5A09357 Assistance with Respiratory Ventilation, Less than 24 Consecutive Hours, Continuous Positive Airway Pressure (ICD-10-PCS; 2021-12-16)
DX: A41.89 Other specified sepsis (principal); U07.1 COVID-19; J12.82 Pneumonia due to coronavirus disease 2019; G92.8 Other toxic encephalopathy; J80 Acute respiratory distress syndrome; I26.99 Other pulmonary embolism without acute cor pulmonale; N17.9 Acute kidney failure, unspecified; E78.00 Pure hypercholesterolemia, unspecified; I25.10 Atherosclerotic heart disease of native coronary artery without angina pectoris; N18.9 Chronic kidney disease, unspecified; E66.01 Morbid (severe) obesity due to excess calories; F41.1 Generalized anxiety disorder; I12.9 Hypertensive chronic kidney disease with stage 1 through stage 4 chronic kidney disease, or unspecified chronic kidney disease; M19.90 Unspecified osteoarthritis, unspecified site; E78.5 Hyperlipidemia, unspecified; R41.0 Disorientation, unspecified; D64.9 Anemia, unspecified; E03.9 Hypothyroidism, unspecified; T68.XXXA Hypothermia, initial encounter; I48.91 Unspecified atrial fibrillation; Z66 Do not resuscitate; R65.20 Severe sepsis without septic shock; R73.9 Hyperglycemia, unspecified; I95.9 Hypotension, unspecified; Z88.8 Allergy status to other drugs, medicaments and biological substances; Z90.710 Acquired absence of both cervix and uterus; Z90.12 Acquired absence of left breast and nipple; Z85.3 Personal history of malignant neoplasm of breast; I25.2 Old myocardial infarction; Z95.5 Presence of coronary angioplasty implant and graft; Z86.16 Personal history of COVID-19; Z68.23 Body mass index [BMI] 23.0-23.9, adult; Z90.49 Acquired absence of other specified parts of digestive tract; Z51.5 Encounter for palliative care
CPT/HCPCS: 10203; 10879